=== PATIENT | female | born 1970 | race Caucasian/White ===

== ENCOUNTER 2020-09-22 15:59 | Emergency (ER) | payer BC ==
--- OUTSIDE RECORDS SUMMARY | 2020-09-22 16:04 | XMS REPORT | Continuity of Care Document ---
:1970 Author Organization [facility] t Address [address] [place] [address] Dr. Hoffman [address] [place] [id number] Care Team Providers Name Role Phone Unavailable Unavailable Unavailable Problems This patient has no known problems. Allergies, Adverse Reactions, Alerts This patient has no known allergies or adverse reactions. Medications This patient has no known medications. Procedures This patient has no known procedures. Results This patient has no known results.
[2020-09-22] MEDS ORDERED: MORPHINE 4 MG/ML SYR ONE ×2 (17:00→18:18)
[2020-09-22] MEDS ORDERED: ONDANSETRON 4 MG/2 ML VIAL ONE ×2 (17:00→18:19)
[2020-09-22] MEDS ORDERED: KETOROLAC 30 MG/ML INJ ONE (17:00)
[2020-09-22] MEDS ORDERED: CEFTRIAXONE/SWI 1gm 1 GM/10 ML SYR ONE (17:01)
[2020-09-22] MEDS ORDERED: NA CHLORIDE 0.9% 1,000 ML ONE ×2 (17:01→17:59)
[2020-09-22 17:06] LABS: Absolute Lymphocytes (CBC) 3.2 K/uL (0.7-4.9); Basophils % 0.8 % (0-1.3); Hematocrit 39.5 % (36.0-45.0); Lymphocytes % 29.9 % (15.3-44.8); MPV 8.6 fL (7.6-11.3); RBC Red Blood Cell Count 4.77 M/uL (3.86-4.86)
[2020-09-22 17:21] LABS: ALT/SGPT 19 U/L (12-78); AST/SGOT 13 U/L (15-37); Albumin 3.7 g/dL (3.4-5.0); Alkaline Phosphatase 78 U/L (45-117); BUN Blood Urea Nitrogen 19 mg/dL (7-18); Bicarbonate 23 mmol/L (21-32); Bilirubin Direct < 0.1 mg/dL (0-0.2); Bilirubin Total 0.1 mg/dL (0.2-1.0); Glucose Level 111 mg/dL (74-106); Lipase 111 U/L (73-393); Protein, Total 7.1 g/dL (6.4-8.2); Sodium Level 139 mmol/L (136-145)
--- NOTE | 2020-09-22 17:21 | RAD REPORT ---
EXAM DESCRIPTION: CTAbdomen Pelvis W Contrast - 09/22/2020 5:15 pm CLINICAL HISTORY: Abdominal pain. ABD PAIN COMPARISON: <Comparisons> TECHNIQUE: Biphasic CT imaging of the abdomen and pelvis was performed with 100 ml non-ionic IV cont rast. All CT scans are performed using dose optimization technique as appropriate and may include automated exposure control or mA/KV adjustment according to patient size. FINDINGS: The lung bases are clear. The liver, spleen, pancreas, adrenal glands and right kidney are within normal limits. Mild left hydr onephrosis and hydroureter is present with a 4 mm stone at the left UVJ. A tiny punctate calculus is also noted slightly more proximally in the left ureter. No bowel obstruction, free air, free fluid or abscess. The appendix is normal. No evidence of signi ficant lymphadenopathy. No suspicious bony findings. IMPRESSION: 4 mm stone left UVJ resulting mild left hydronephrosis and hydroureter.
--- NOTE | 2020-09-22 17:30 | EDPHYS ---
Physician Documentation [facility] Name: Beena Lobo Age: 50 yrs Sex: Female : 1970 Arrival Date: 09/22/2020 Time: 16:03 Bed 5 Private MD: BASIL Physician Juan Plaza HPI: 09/22 16:36 This 50 yrs old Female presents to ER via Ambulatory with complaints of mike Abdominal Pain, Vomiting. 16:36 The patient presents to the emergency department with nausea, vomiting, that is mike continuous. Onset: The symptoms/episode began/occurred just prior to arrival. Possible causes: unknown. The symptoms are aggravated by nothing. The symptoms are alleviated by nothing. Associated signs and symptoms: Pertinent positives: abdominal pain, dysuria. Severity of symptoms: At their worst the symptoms were moderate severe in the emergency department the symptoms are unchanged. The patient has not experienced similar symptoms in the past. 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 - Social history:: Smoking status: Patient denies any tobacco usage or history of. ROS: 16:37 Constitutional: Negative for fever, chills, and weight loss, Eyes: Negative for injury, mike pain, redness, and discharge, ENT: Negative for injury, pain, and discharge, Neck: Negative for injury, pain, and swelling, Cardiovascular: Negative for chest pain, palpitations, and edema, Respiratory: Negative for shortness of breath, cough, wheezing, and pleuritic chest pain, : Negative for injury, bleeding, discharge, and swelling, MS/Extremity: Negative for injury and deformity, Skin: Negative for injury, rash, and discoloration, Neuro: Negative for headache, weakness, numbness, tingling, and seizure, Psych: Negative for depression, anxiety, suicide ideation, homicidal ideation, and hallucinations, Allergy/Immunology: Negative for hives, rash, and allergies, Endocrine: Negative for neck swelling, polydipsia, polyuria, polyphagia, and marked weight changes, Hematologic/Lymphatic: Negative for swollen nodes, abnormal bleeding, and unusual bruising. 16:37 Abdomen/GI: Positive for abdominal pain, nausea and vomiting, of the posterior aspect of left lateral abdomen, anterior aspect of left lateral abdomen, left upper quadrant and left lower quadrant. Exam: 16:37 Constitutional: This is a well developed, well nourished patient who is awake, alert, mike and in no acute distress. Head/Face: Normocephalic, atraumatic. Eyes: Pupils equal round and reactive to light, extra-ocular motions intact. Lids and lashes normal. Conjunctiva and sclera are non-icteric and not injected. Cornea within normal limits. Periorbital areas with no swelling, redness, or edema. ENT: Nares patent. No nasal discharge, no septal abnormalities noted. Tympanic membranes are normal and external auditory canals are clear. Oropharynx with no redness, swelling, or masses, exudates, or evidence of obstruction, uvula midline. Mucous membranes moist. Neck: Trachea midline, no thyromegaly or masses palpated, and no cervical lymphadenopathy. Supple, full range of motion without nuchal rigidity, or vertebral point tenderness. No Meningismus. Chest/axilla: Normal chest wall appearance and motion. Nontender with no deformity. No lesions are appreciated. Cardiovascular: Regular rate and rhythm with a normal S1 and S2. No gallops, murmurs, or rubs. Normal PMI, no JVD. No pulse deficits. Respiratory: Lungs have equal breath sounds bilaterally, clear to auscultation and percussion. No rales, rhonchi or wheezes noted. No increased work of breathing, no retractions or nasal flaring. Pelvic Exam: Normal external genitalia. Speculum exam with closed cervical os, no discharge or bleeding noted. Bimanual exam with normal adnexa, no adnexal or cervical motion tenderness. Normal uterus. Female : Normal external genitalia. Skin: Warm, dry with normal turgor. Normal color with no rashes, no lesions, and no evidence of cellulitis. MS/ Extremity: Pulses equal, no cyanosis. Neurovascular intact. Full, normal range of motion. Neuro: Awake and alert, GCS 15, oriented to person, place, time, and situation. Cranial nerves II-XII grossly intact. Motor strength 5/5 in all extremities. Sensory grossly intact. Cerebellar exam normal. Normal gait. Psych: Awake, alert, with orientation to person, place and time. Behavior, mood, and affect are within normal limits. 16:37 Abdomen/GI: Inspection: abdomen appears normal, Bowel sounds: normal, Palpation: mild abdominal tenderness, moderate abdominal tenderness, in the posterior aspect of left lateral abdomen, anterior aspect of left lateral abdomen, left upper quadrant and left lower quadrant. Vital Signs: 16:07 BP 145 / 72; Pulse 85; Resp 18; Temp 97.6(TE); Pulse Ox 100% on R/A; Weight 56.7 kg; ss Height 5 ft. 3 in. (160.02 cm); Pain 9/10; 17:30 BP 130 / 72; Pulse 79; Resp 15; Pulse Ox 99% ; hb 19:36 BP 125 / 80; Pulse 80; Resp 18; Temp 98; Pulse Ox 100% ; Pain 0/10; mg2 16:07 Body Mass Index 22.14 (56.70 kg, 160.02 cm) ss MDM: 16:16 Patient medically screened. [facility] 16:38 Differential diagnosis: UTI, diverticulitis, pancreatitis, Nonspecific abd pain, mike pancreatitis, diverticulitis, viral gastroenteritis, gastroenteritis. Data reviewed: vital signs, nurses notes, lab test result(s), radiologic studies, CT scan. Data interpreted: engine monitor: rate is 85 beats/min, rhythm is regular. Test interpretation: by ED physician or midlevel provider:. Counseling: I had a detailed discussion with the patient and/or guardian regarding: the historical points, exam findings, and any diagnostic results supporting the discharge/admit diagnosis, lab results, radiology results. 09/22 16:35 Order name: Basic Metabolic Panel; Complete Time: 17:25 mike 09/22 16:35 Order name: CBC with Diff; Complete Time: 17:25 mike 09/22 16:35 Order name: Hepatic Function; Complete Time: 17:25 mike 09/22 16:35 Order name: Lipase; Complete Time: 17:25 mike 09/22 16:35 Order name: Urine Culture mike 09/22 18:14 Order name: Urine --Ancillary (enter results) eb 09/22 16:35 Order name: CT Abd/Pelvis - IV Contrast Only; Complete Time: 17:25 mike 09/22 18:14 Order name: Urine Dipstick-Ancillary EDMS 09/22 16:35 Order name: IV Saline Lock; Complete Time: 16:56 [facility] 09/22 16:35 Order name: Labs collected and sent; Complete Time: 16:56 [facility] 09/22 16:35 Order name: Urine Dipstick-Ancillary (obtain specimen); Complete Time: 18:09 [facility] 09/22 16:35 Order name: Urine Test (obtain specimen); Complete Time: 18:09 [facility] Administered Medications: 16:55 Drug: TORadol 30 mg Route: IVP; Site: right antecubital; hb 17:35 Follow up: Response: No adverse reaction hb 16:55 Drug: morphine 4 mg Route: IVP; Site: right antecubital; hb 17:35 Follow up: Response: No adverse reaction hb 16:55 Drug: Zofran (Ondansetron) 4 mg Route: IVP; Site: right antecubital; hb 17:40 Follow up: Response: No adverse reaction hb 16:56 Drug: NS 0.9% 1000 ml Route: IV; Rate: 1 bolus; Site: right antecubital; hb 18:08 Drug: morphine 4 mg Route: IVP; Site: right antecubital; hb 18:27 Follow up: Response: No adverse reaction hb 18:08 Drug: Zofran (Ondansetron) 4 mg Route: IVP; Site: right antecubital; hb 18:27 Follow up: Response: No adverse reaction hb 18:09 Drug: Rocephin - (cefTRIAXone) 1 grams Route: IVPB; Infused Over: 30 mins; Site: right hb antecubital; 18:10 Follow up: IV Status: Completed infusion; IV Intake: 10ml hb 18:28 Follow up: Response: No adverse reaction hb 18:09 Drug: Flomax 0.4 mg Route: PO; hb 19:36 Follow up: Response: No adverse reaction mg2 18:18 Drug: NS 0.9% 1000 ml Route: IV; Rate: 1 bolus; Site: right antecubital; hb 19:36 Follow up: Response: No adverse reaction; IV Status: Completed infusion; IV Intake: mg2 1000ml Disposition: 09/22/20 17:29 Discharged to Home. Impression: Hydronephrosis with renal and ureteral calculous obstruction - 4 mm uvj. - Condition is Stable. - Discharge Instructions: Kidney Stones, Kidney Stones, [id number], Hydronephrosis, Dietary Guidelines to Help Prevent Kidney Stones. - Prescriptions for Tylenol- Codeine #3 300-30 mg Oral Tablet - take 2 tablet by ORAL route every 4-6 hours As needed; 30 tablet. Zofran 4 mg Oral Tablet - take 1 tablet by ORAL route every 12 hours As needed; 20 tablet. Flomax 0.4 mg Oral Capsule, Sust. Release 24 hr - take 1 capsule by ORAL route once daily 1/2 hour following the same meal each day; 30 capsule. Cipro 500 mg Oral Tablet - take 1 tablet by ORAL route every 12 hours for 7 days; 14 tablet. - Medication Reconciliation Form, Thank You Letter, Antibiotic Education, Prescription Opioid Use form. - Follow up: Private Physician; When: 2 - 3 days; Reason: Recheck today's complaints, Re-evaluation by your physician. Follow up: Hiro Omer MD; When: 2 - 3 days; Reason: Recheck today's complaints, Re-evaluation by your physician. - Problem is new. - Symptoms have improved. Signatures: Dispatcher [employer] EDMS Juan Plaza MD MD cha Smirch, Shelby, RN RN Aline Chung RN RN Peter Burns RN RN mg2 Corrections: (The following items were deleted from the chart) 19:37 17:29 09/22/2020 17:29 Discharged to Home. Impression: Hydronephrosis with renal and mg2 ureteral calculous obstruction - 4 mm uvj. Condition is Stable. Forms are Medication Reconciliation Form, Thank You Letter, Antibiotic Education, Prescription Opioid Use. Follow up: Private Physician; When: 2 - 3 days; Reason: Recheck today's complaints, Re-evaluation by your physician. Follow up: Hiro Omer; When: 2 - 3 days; Reason: Recheck today's complaints, Re-evaluation by your physician. Problem is new. Symptoms have improved. mike
--- NOTE | 2020-09-22 17:30 | ER ---
Nurse's Notes [facility] Name: Beena Lobo Age: 50 yrs Sex: Female : 1970 Arrival Date: 09/22/2020 Time: 16:03 Bed 5 Private MD: Diagnosis: Hydronephrosis with renal and ureteral calculous obstruction-4 mm uvj Presentation: 09/22 16:07 Chief complaint: Patient states: vaginal pain that began Friday. Pt began taking ss Bactrim as prescribed by per PCP as there was blood in her urine. Pt now c/o sharp, stabbing pain to L flank area with nausea. Coronavirus screen: Client denies travel out of the [place] in the last 14 days. Ebola Screen: Patient denies exposure to infectious person. Patient denies travel to an Ebola-affected area in the 21 days before illness onset. Initial Sepsis Screen: Does the patient meet any 2 criteria? No. Patient's initial sepsis screen is negative. Does the patient have a suspected source of infection? No. Patient's initial sepsis screen is negative. Risk Assessment: Do you want to hurt yourself or someone else? Patient reports no desire to harm self or others. Onset of symptoms was September 22, 2020. 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 - Social history:: Smoking status: Patient denies any tobacco usage or history of. Screenin:23 Abuse screen: Denies threats or abuse. Denies injuries from another. Nutritional hb screening: No deficits noted. Tuberculosis screening: No symptoms or risk factors identified. Fall Risk None identified. Assessment: 16:56 General: Appears in no apparent distress. Behavior is calm, cooperative. Pain: Pain hb currently is 10 out of 10 on a pain scale. Neuro: Level of Consciousness is awake, alert, obeys commands, Oriented to person, place, time, situation. Cardiovascular: Patient's skin is warm and dry. Rhythm is regular. Respiratory: Respiratory effort is even, unlabored, Respiratory pattern is regular, symmetrical. GI: Reports lower abdominal pain, upper abdominal pain, nausea, vomiting. : Reports burning with urination. EENT: No signs and/or symptoms were reported regarding the EENT system. Derm: Skin is pink, warm \T\ dry. Musculoskeletal: No signs and/or symptoms reported regarding the musculoskeletal system. 18:18 Reassessment: Patient appears in no apparent distress at this time. Patient and/or hb family updated on plan of care and expected duration. Pain level reassessed. Patient is alert, oriented x 3, equal unlabored respirations, skin warm/dry/pink. Vital Signs: 16:07 BP 145 / 72; Pulse 85; Resp 18; Temp 97.6(TE); Pulse Ox 100% on R/A; Weight 56.7 kg; ss Height 5 ft. 3 in. (160.02 cm); Pain 9/10; 17:30 BP 130 / 72; Pulse 79; Resp 15; Pulse Ox 99% ; hb 19:36 BP 125 / 80; Pulse 80; Resp 18; Temp 98; Pulse Ox 100% ; Pain 0/10; mg2 16:07 Body Mass Index 22.14 (56.70 kg, 160.02 cm) ss ED Course: 16:03 Patient arrived in ED. mr 16:09 Triage completed. ss 16:10 Arm band placed on right wrist. ss 16:16 Juan Plaza MD is Attending Physician. mike 16:23 Aline Chung, GLORIA is Primary Nurse. hb 16:54 Inserted saline lock: 20 gauge in right antecubital area, using aseptic technique. hb Blood collected. 16:57 Patient has correct armband on for positive identification. Bed in low position. Call hb light in reach. 17:14 CT Abd/Pelvis - IV Contrast Only In Process Unspecified. EDMS 17:28 Hiro Omer MD is Referral Physician. mike 19:37 No provider procedures requiring assistance completed. IV discontinued, intact, mg2 bleeding controlled, No redness/swelling at site. Pressure dressing applied. Administered Medications: 16:55 Drug: TORadol 30 mg Route: IVP; Site: right antecubital; hb 17:35 Follow up: Response: No adverse reaction hb 16:55 Drug: morphine 4 mg Route: IVP; Site: right antecubital; hb 17:35 Follow up: Response: No adverse reaction hb 16:55 Drug: Zofran (Ondansetron) 4 mg Route: IVP; Site: right antecubital; hb 17:40 Follow up: Response: No adverse reaction hb 16:56 Drug: NS 0.9% 1000 ml Route: IV; Rate: 1 bolus; Site: right antecubital; hb 18:08 Drug: morphine 4 mg Route: IVP; Site: right antecubital; hb 18:27 Follow up: Response: No adverse reaction hb 18:08 Drug: Zofran (Ondansetron) 4 mg Route: IVP; Site: right antecubital; hb 18:27 Follow up: Response: No adverse reaction hb 18:09 Drug: Rocephin - (cefTRIAXone) 1 grams Route: IVPB; Infused Over: 30 mins; Site: right hb antecubital; 18:10 Follow up: IV Status: Completed infusion; IV Intake: 10ml hb 18:28 Follow up: Response: No adverse reaction hb 18:09 Drug: Flomax 0.4 mg Route: PO; hb 19:36 Follow up: Response: No adverse reaction mg2 18:18 Drug: NS 0.9% 1000 ml Route: IV; Rate: 1 bolus; Site: right antecubital; hb 19:36 Follow up: Response: No adverse reaction; IV Status: Completed infusion; IV Intake: mg2 1000ml Intake: 18:10 IV: 10ml; Total: 10ml. hb 19:36 IV: 1000ml; Total: 1010ml. mg2 Outcome: 17:29 Discharge ordered by MD. mckeon 19:37 Discharged to home ambulatory. mg2 19:37 Condition: stable 19:37 Discharge instructions given to patient, Instructed on discharge instructions, follow up and referral plans. medication usage, Demonstrated understanding of instructions, follow-up care, medications, Prescriptions given X 4. 19:37 Patient left the ED. mg2 Signatures: Dispatcher [employer] EDMS Juan Plaza MD MD cha Rivera, Bettye Montes, GLORIA CASTRO Aline Chung RN RN hb Gardose, Michele, RN RN mg2
[2020-09-22] MEDS ORDERED: TAMSULOSIN 0.4 MG SR CAP ONE (17:52)
[2020-09-22 18:15] LABS: Urine Blood Negative (Negative); Urine Glucose Negative (Negative); Urine Protein Negative (Negative); Urine Specific Gravity 1.015 (1.005-1.030)
[2020-09-22 18:37] LABS: Urine Specific Gravity/Preg 1.015 (1.005-1.030)
== END 2020-09-22 19:37 | disposition home or self-care (01) ==
LOC: ER 15:59
DX: N13.2 Hydronephrosis with renal and ureteral calculous obstruction (principal); E03.9 Hypothyroidism, unspecified
CPT/HCPCS: 96361; 87088; 85025; 87086; 80048; 36415; 81025; 82565; 80076; 81003; 83690; 74177; 96375; 96374; 99284; Q9967; J0696; J7030 ×2; J2405 ×2

== ENCOUNTER 2020-09-23 20:10 | Emergency (ER) | payer BC ==
--- OUTSIDE RECORDS SUMMARY | 2020-09-23 20:13 | XMS REPORT | Continuity of Care Document ---
:1970 Author Organization [facility] t Address [address] [place] [address] Dr. Hofmfan [address] [place] [id number] Care Team Providers Name Role Phone Unavailable Unavailable Unavailable Problems This patient has no known problems. Allergies, Adverse Reactions, Alerts This patient has no known allergies or adverse reactions. Medications This patient has no known medications. Procedures This patient has no known procedures. Results This patient has no known results.
[2020-09-23 20:23] LABS: Urine Blood Trace-intact (Negative); Urine Glucose Negative (Negative); Urine Protein Negative (Negative)
--- NOTE | 2020-09-23 20:44 | ER ---
Nurse's Notes [facility] Name: Beena Lobo Age: 50 yrs Sex: Female : 1970 Arrival Date: 09/23/2020 Time: 20:10 Bed 2 Private MD: Diagnosis: Ureterolithiasis;Hematuria Presentation: 09/23 20:23 Chief complaint: Patient states: Pt was here yesterday for kidney stones and was discharged. Pt C/O difficulty urinating and came back. Pt peed a little in ER. Coronavirus screen: Client denies travel out of the [place] in the last 14 days. Ebola Screen: Patient negative for fever greater than or equal to 101.5 degrees Fahrenheit, and additional compatible Ebola Virus Disease symptoms Patient denies exposure to infectious person. Risk Assessment: Do you want to hurt yourself or someone else? Patient reports no desire to harm self or others. Onset of symptoms was September 23, 2020. 20:23 Method Of Arrival: Ambulatory 20:23 Acuity: MICHEL 4 20:29 Initial Sepsis Screen: Does the patient meet any 2 criteria? No. Patient's initial sepsis screen is negative. Does the patient have a suspected source of infection? Yes: Acute abdominal pain. 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 - Social history:: Smoking status: Patient denies any tobacco usage or history of. Screenin:25 Abuse screen: Denies threats or abuse. Denies injuries from another. Nutritional screening: No deficits noted. Tuberculosis screening: No symptoms or risk factors identified. Fall Risk None identified. Assessment: 20:26 General: Appears in no apparent distress. Behavior is calm, cooperative, appropriate for age. Pain: Denies pain. Neuro: Level of Consciousness is awake, alert, obeys commands, Oriented to person, place, time, situation, Appropriate for age. Cardiovascular: Heart tones S1 S2. Respiratory: Airway is patent Respiratory effort is even, unlabored, Respiratory pattern is regular, symmetrical. Respiratory: Breath sounds are clear bilaterally. GI: Abdomen is flat, non-distended, Bowel sounds present X 4 quads. Abd is soft and non tender X 4 quads. : Reports inability to void. EENT: No signs and/or symptoms were reported regarding the EENT system. Derm: Skin is intact, is healthy with good turgor, Skin is pink, warm \T\ dry. normal. Musculoskeletal: Circulation, motion, and sensation intact. Vital Signs: 20:29 BP 114 / 58; Pulse 81; Resp 18; Temp 98.2; Pulse Ox 99% ; Weight 56.7 kg; Height 5 ft. wh 3 in. (160.02 cm); 20:29 Body Mass Index 22.14 (56.70 kg, 160.02 cm) ED Course: 20:10 Patient arrived in ED. ds1 20:12 Shirin Espinoza, RN is Primary Nurse. 20:17 Elemr Coy MD is Attending Physician. [facility] 20:24 Triage completed. 20:27 Arm band placed on right wrist. 20:28 Patient has correct armband on for positive identification. Bed in low position. Call light in reach. Side rails up X 1. Pulse ox on. NIBP on. 20:43 Hiro Omer MD is Referral Physician. 7 20:57 No provider procedures requiring assistance completed. Patient did not have IV access during this emergency room visit. Administered Medications: No medications were administered Outcome: 20:44 Discharge ordered by . 7 20:57 Discharged to home ambulatory, with family. 20:57 Condition: stable 20:57 Discharge instructions given to patient, Instructed on discharge instructions, follow up and referral plans. POC Demonstrated understanding of instructions, follow-up care, POC 20:58 Patient left the ED. Signatures: Mercedez Barajas ds1 Shirin Espinoza, GLORIA RN Elmer Coy MD MD [facility]
--- NOTE | 2020-09-23 20:44 | EDPHYS ---
Physician Documentation [facility] Name: Beena Lobo Age: 50 yrs Sex: Female : 1970 Arrival Date: 09/23/2020 Time: 20:10 Bed 2 Private MD: ED Physician Elmer Coy HPI: 09/23 20:35 This 50 yrs old Female presents to ER via Ambulatory with complaints of mh7 Urinary Problem, Possible Kidney Stone. 20:35 The patient presents with urinary symptoms, hesitancy. mh7 20:37 Onset: The symptoms/episode began/occurred today. Modifying factors: The symptoms are mh7 alleviated by nothing, the symptoms are aggravated by nothing. Associated signs and symptoms: Pertinent negatives: constipation, cramping, diarrhea, dyspareunia, dysuria, fever, hematuria, nausea, urinary frequency, vaginal bleeding, vaginal discharge, vomiting. Severity of symptoms: At their worst the symptoms were moderate, earlier today, in the emergency department the symptoms have resolved, and did so while in waiting room. The patient has been recently seen at the [facility] Emergency Department, yesterday. States that she was diagnosed with a kidney stone yesterday and had some difficulty with urination today. States that has resolved just prior to being evaluated in triage. Denies any other complaints at this time.. 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 - Social history:: Smoking status: Patient denies any tobacco usage or history of. ROS: 20:37 Constitutional: Negative for fever, chills, and weight loss, Eyes: Negative for injury, mh7 pain, redness, and discharge, ENT: Negative for injury, pain, and discharge, Neck: Negative for injury, pain, and swelling, Cardiovascular: Negative for chest pain, palpitations, and edema, Respiratory: Negative for shortness of breath, cough, wheezing, and pleuritic chest pain, Abdomen/GI: Negative for abdominal pain, nausea, vomiting, diarrhea, and constipation, Back: Negative for injury and pain, MS/Extremity: Negative for injury and deformity, Skin: Negative for injury, rash, and discoloration, Neuro: Negative for headache, weakness, numbness, tingling, and seizure, Psych: Negative for depression, anxiety, suicide ideation, homicidal ideation, and hallucinations, Allergy/Immunology: Negative for hives, rash, and allergies, Endocrine: Negative for neck swelling, polydipsia, polyuria, polyphagia, and marked weight changes, Hematologic/Lymphatic: Negative for swollen nodes, abnormal bleeding, and unusual bruising. Exam: 20:37 Constitutional: This is a well developed, well nourished patient who is awake, alert, mh7 and in no acute distress. Head/Face: Normocephalic, atraumatic. Eyes: Pupils equal round and reactive to light, extra-ocular motions intact. Lids and lashes normal. Conjunctiva and sclera are non-icteric and not injected. Cornea within normal limits. Periorbital areas with no swelling, redness, or edema. Neck: Trachea midline, no thyromegaly or masses palpated, and no cervical lymphadenopathy. Supple, full range of motion without nuchal rigidity, or vertebral point tenderness. No Meningismus. Chest/axilla: Normal chest wall appearance and motion. Nontender with no deformity. No lesions are appreciated. Cardiovascular: Regular rate and rhythm with a normal S1 and S2. No gallops, murmurs, or rubs. Normal PMI, no JVD. No pulse deficits. Respiratory: Lungs have equal breath sounds bilaterally, clear to auscultation and percussion. No rales, rhonchi or wheezes noted. No increased work of breathing, no retractions or nasal flaring. Abdomen/GI: Soft, non-tender, with normal bowel sounds. No distension or tympany. No guarding or rebound. No evidence of tenderness throughout. Back: No spinal tenderness. No costovertebral tenderness. Full range of motion. Skin: Warm, dry with normal turgor. Normal color with no rashes, no lesions, and no evidence of cellulitis. MS/ Extremity: Pulses equal, no cyanosis. Neurovascular intact. Full, normal range of motion. Neuro: Awake and alert, GCS 15, oriented to person, place, time, and situation. Cranial nerves II-XII grossly intact. Motor strength 5/5 in all extremities. Sensory grossly intact. Cerebellar exam normal. Normal gait. Psych: Awake, alert, with orientation to person, place and time. Behavior, mood, and affect are within normal limits. Vital Signs: 20:29 BP 114 / 58; Pulse 81; Resp 18; Temp 98.2; Pulse Ox 99% ; Weight 56.7 kg; Height 5 ft. wh 3 in. (160.02 cm); 20:29 Body Mass Index 22.14 (56.70 kg, 160.02 cm) MDM: 20:37 Differential diagnosis: kidney stone, urinary tract infection, urinary retention. Data [facility] reviewed: vital signs, old medical records, lab test result(s), urinalysis, hematuria. Data interpreted: Pulse oximetry: on room air is 99 %. Interpretation: normal. Counseling: I had a detailed discussion with the patient and/or guardian regarding: the historical points, exam findings, and any diagnostic results supporting the discharge/admit diagnosis, lab results, the need for outpatient follow up, to return to the emergency department if symptoms worsen or persist or if there are any questions or concerns that arise at home. Response to treatment: the patient's symptoms have resolved after treatment, the patient's blood pressure is in an acceptable range, mental status has returned to baseline, the patient no longer shows bradycardia, the patient is not short of breath, the patient is not tachycardic, the patient's pain is gone, the patient's temperature has normalized. Refusal of service: The patient/guardian displays adequate decision making capability and despite a detailed discussion of alternatives, benefits, risks, and consequences refuses: CT Scan, all lab tests. 20:44 Patient medically screened. [facility] 09/23 20:23 Order name: Urine Dipstick-Ancillary; Complete Time: 20:26 EDMS 09/23 20:25 Order name: Urine --Ancillary (enter results) 2 09/23 20:26 Order name: Urine --Ancillary EDMS Administered Medications: No medications were administered Disposition: 09/23/20 20:44 Discharged to Home. Impression: Ureterolithiasis, Hematuria. - Condition is Stable. - Discharge Instructions: Kidney Stones, [id number]. - Medication Reconciliation Form, Thank You Letter, Antibiotic Education, Prescription Opioid Use form. - Follow up: Private Physician; When: 1 - 2 days; Reason: Worsening of condition, Recheck today's complaints, Continuance of care, Re-evaluation by your physician. Follow up: Hiro Omer MD; When: 1 - 2 days; Reason: Worsening of condition, Recheck today's complaints. - Problem is new. - Symptoms have improved. Signatures: Dispatcher [employer] EDMS Shirin Espinoza RN RN Elmer Coy MD MD mh7 Corrections: (The following items were deleted from the chart) 20:58 20:44 09/23/2020 20:44 Discharged to Home. Impression: Ureterolithiasis; Hematuria. Condition is Stable. Forms are Medication Reconciliation Form, Thank You Letter, Antibiotic Education, Prescription Opioid Use. Follow up: Private Physician; When: 1 - 2 days; Reason: Worsening of condition, Recheck today's complaints, Continuance of care, Re-evaluation by your physician. Follow up: Hiro Omer; When: 1 - 2 days; Reason: Worsening of condition, Recheck today's complaints. Problem is new. Symptoms have improved. mh7
== END 2020-09-23 20:58 | disposition home or self-care (01) ==
LOC: ER 20:10
DX: N20.1 Calculus of ureter (principal); E03.9 Hypothyroidism, unspecified
CPT/HCPCS: 81003; 81025; 99283

== ENCOUNTER 2021-07-02 07:21 | Day surgery (SDC) | payer BC ==
[2021-07-02 07:40] LABS: Specific Gravity >= 1.030 (1.005-1.030)
[2021-07-02] MEDS ORDERED: Ringers Lactate 1,000 ML IV ONE (07:48)
[2021-07-02] MEDS ORDERED: propofoL 200 MG/20 ML VIAL IV ONE (08:01)
[2021-07-02] MEDS ORDERED: LIDOCAINE 1% MPF 5 ML VIAL ONE (08:02)
--- NOTE | 2021-07-02 08:45 | ENDO RPT ---
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 ESTIMATED BLOOD LOSS: None CONSENT: The patient understands the risks and benefits of the procedure and understands that these risks include, but are not limited to: sedation, allergic reaction, infection, perforation and/or bleeding. Alternative means of evaluation and treatment include, among others: physical exam, x-rays, and/or surgical intervention. The patient elects to proceed with this endoscopic procedure. DESCRIPTION OF PROCEDURE: During intra-op preparation period all mechanical medical equipment was checked for proper function. Hand hygiene and appropriate measures for infection prevention was taken. Procedure, possible complications, alternatives including, but not limited to possibility of bleeding, perforation, tear, infection, sepsis, need for surgery, need for blood transfusion, were explained to the patient. After the risks, benefits and alternatives of the procedure were thoroughly explained, Informed consent was verified, confirmed and timeout was successfully executed by the treatment team. The patient was placed in the left lateral position. A digital rectal exam was performed and revealed internal hemorrhoids. After appropriate level of anesthesia, the scope was passed. The EC-[id number] ([id number]) endoscope was introduced through the anus and advanced to the cecum, which was identified by both the appendix and ileocecal valve. The quality of the prep was fair. The instrument was then slowly withdrawn as the colon was fully examined. Scope withdrawal time was 8 minutes. COLON FINDINGS: A sessile polyp ranging between 3-5mm in size with a mucous cap was found in the sigmoid colon. A polypectomy was performed with cold forceps. The resection was complete, the polyp tissue was completely retrieved and sent to histology. Moderate sized internal hemorrhoids were found. Retroflexed views revealed no abnormalities. The scope was then completely withdrawn from the patient and the procedure terminated. ADVERSE EVENTS: There were no complications. IMPRESSIONS: 1. Sessile polyp ranging between 3-5mm in size was found in the sigmoid colon; polypectomy was performed with cold forceps 2. Internal hemorrhoids RECOMMENDATIONS: 1. follow-up: office 2 week(s) 2. avoid NSAIDS for 2 weeks 3. await biopsy results 4. fiber rich diet 5. Monitor for any evidence of rectal bleeding. 6. increase dietary water RECALL: for Colonoscopy, pending biopsy results. Jaydon Clark DR eSigned: Jaydon Clark DR 07/02/2021 8:44 AM cc: CPT CODES: ICD9 CODES: PATIENT NAME: Beena Lobo MR#: [id number]
[2021-07-02 08:56] VITALS: O2SAT 100
[2021-07-02 09:58] VITALS: BP 129/58; TEMP 97.9
== END 2021-07-02 09:32 | disposition home or self-care (01) ==
LOC: OR 07:21
PROVIDERS: ATTEND Surgery
PROC: 0DBN8ZX Excision of Sigmoid Colon, Via Natural or Artificial Opening Endoscopic, Diagnostic (ICD-10-PCS; principal; 2021-07-02 08:30)
DX: Z12.11 Encounter for screening for malignant neoplasm of colon (principal); K64.8 Other hemorrhoids; K63.5 Polyp of colon; Z20.822 Contact with and (suspected) exposure to COVID-19
CPT/HCPCS: 81025; 88305; 45380; U0002; J2704; J7120

== ENCOUNTER 2024-05-26 10:56 | Day surgery (SDC) | payer OTHER ==
[2024-05-26 09:42] LABS: Absolute Basophils 0.1 K/uL (0-0.5); Absolute Eosinophils 0.1 K/uL (0-0.5); Absolute Lymphocytes (CBC) 0.7 K/uL (0.7-4.9); Absolute Monocytes 0.7 K/uL (0.1-1.3); Absolute Neutrophil 9.2 K/uL (1.8-8.0); Basophils % 0.6 % (0-1.3); Hematocrit 42.7 % (36.0-45.0); Hemoglobin 14.2 g/dL (12.0-15.0); Lymphocytes % 6.9 % (15.3-44.8); MCHC 33.3 g/dL (32.0-36.0); MCV 84.3 fL (80-100); MPV 7.6 fL (7.6-11.3); Monocytes % 6.9 % (3.3-12.3); Neutrophils % 84.6 % (41.7-73.7); Nucleated Red Blood Cells % 0.1 % (0-0); Platelets 322 thou/uL (152-406); RBC Red Blood Cell Count 5.07 M/uL (3.86-4.86); Red Cell Distribution Width 13.8 % (12.1-15.2)
[2024-05-26 10:12] LABS: Anion Gap 6.3 mEq/L (5.0-15.0); Potassium 4.3 mEq/L (3.5-5.1)
[2024-05-26] MEDS: Ringers Lactate 1,000 ML IV ONE (11:20)
[2024-05-26] MEDS ORDERED: FENTANYL CITR 100 MCG/2 ML ONE ×2 (12:07→12:51)
[2024-05-26] MEDS ORDERED: LIDOCAINE 2% MPF 5 ML VIAL ONE (12:07)
[2024-05-26] MEDS ORDERED: propofoL 200 MG/20 ML VIAL IV ONE (12:07)
[2024-05-26] MEDS ORDERED: ONDANSETRON 4 MG/2 ML VIAL ONE (12:07)
[2024-05-26] MEDS ORDERED: MIDAZOLAM HCL 2 MG/2 ML INJ ONE (12:08)
[2024-05-26] MEDS: CEFAZOLIN SODIUM 1 GM/VIAL ONE (12:35)
[2024-05-26] MEDS ORDERED: dexAMETHasone 10 MG/ML VIAL ONE (12:43)
[2024-05-26] MEDS: LIDOCAINE HCL/EPINEPHRINE 20 ML MDV ONE (12:49)
--- NOTE | 2024-05-26 13:05 | P.OP ---
Preoperative diagnosis: LEFT pubic lipoma Postoperative diagnosis: LEFT pubic lipoma Primary procedure: Wide Excision of LEFT pubic lipoma Anesthesia: GETA + Local Estimated blood loss: <5cc Specimen: lipoma Findings: ~ 5cm x 2cm multilobulated lipoma Complications: None Transferred to: Recovery Room Condition: Good
[2024-05-26 14:36] VITALS: BP 118/58; TEMP 99.1; O2SAT 97
--- NOTE | 2024-05-26 17:40 | OP ---
Date of Procedure: 05/26/2024 Surgeon: Jaydon Clark MD, Preoperative Diagnosis: Left pubic lipoma. Postoperative Diagnosis: Left pubic lipoma. Procedure Performed: Wide local excision of left pubic lipoma. Anesthesia: General endotracheal plus local 1% lidocaine with epinephrine. Estimated Blood Loss: Less than 5 cc. Specimen: Lipomas. Findings: Approximately 5 cm x 2 cm multiloculated lipoma of the left pubic region. Complications: None. Disposition: The patient transferred to recovery room in good condition. Procedure In Detail: After informed consent was obtained, patient was brought into the operating russ m, prepped and draped in the usual sterile fashion after adequate anesthesia was achieved. I made a linear incision overlying the left pubic region on the mons pubis down to subcutaneous tissues with a 15 blade. Electrocautery was used to dissect down to a palpable multilobulated lipomatous mass in t he pubic region. This was removed in its entirety using a combination of blunt dissection, electroca utery, and sent off for pathologic examination with size as described above. The area was copiously irrigated. Deep tissue planes were reapproximated loosely with 3-0 Vicryl. Deep dermal plane was th en closed once again with 3-0 Vicryl and skin was closed with a 4-0 Monocryl in a running fashion. D ermabond was placed over top. The patient tolerated the procedure without incident or complication and transferred to PACU in good condition. All counts were correct at the end of the case. LEXUS/DIANA Voice ID: [id number] Report ID: [id number]
--- NOTE | 2024-05-28 15:52 | EKG ---
Test Date: 2024-05-26 Test Time: 10:19:00 Sucker Machine Operator: PREO MEASUREMENT RESULTS: Intervals: Rate: 87 NV: 142 QRSD: 76 QT: 350 QTc: 421 [place]: P: 69 NV: 142 QRS: 63 T: 60 INTERPRETIVE STATEMENTS: Normal sinus rhythm Normal ECG No previous ECG available for comparison Electronically Signed On 05-28-24 15:48:53 EMERGENCY MEDICAL TECH by Giacomo Brown
== END 2024-05-26 14:35 | disposition home or self-care (01) ==
LOC: OR 10:56
PROVIDERS: ATTEND Surgery
PROC: 0JBC0ZZ Excision of Pelvic Region Subcutaneous Tissue and Fascia, Open Approach (ICD-10-PCS; principal; 2024-05-26 12:45)
DX: D17.1 Benign lipomatous neoplasm of skin and subcutaneous tissue of trunk (principal)
CPT/HCPCS: 36415; 80048; 84703; 85025; 88304; 93005; J0690; J1100; J2003; J2250; J2405; J2704; J3010; J7120

== ENCOUNTER 2024-09-24 10:02 | Day surgery (SDC) | payer OTHER ==
--- OUTSIDE RECORDS SUMMARY | 2024-09-24 10:10 | XMS REPORT | Continuity of Care Document ---
Author Name Unknown Address [address] [place] [address] [place] [address] [address] [place] [address] Care Team Providers Care Slot Shift Manager Name Role Phone Unavailable Unavailable Unavailable Encounters Start Date/Time End Date/Time Encounter Type Admission Type Attending Clinicians Care Facility Care Department Encounter ID Source 2021-07-11 12:52:35 Outpatient [facility] [id number] [facility]
--- NOTE | 2024-09-24 13:10 | EDPHYS ---
Physician Documentation [facility] Name: Beena Lobo Age: 54 yrs Sex: Female : 1970 Arrival Date: 09/24/2024 Time: 10:02 Bed Treatment Private MD: ED Physician Devaughn Shay HPI: 09/24 10:32 Chief Complaint: Sensation of something stuck in the throat with associated pain. 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 The sensation was initially felt when swallowing and has since moved to a lower area, causing discomfort but not obstructing swallowing. The patient was able to eat a piece of pizza last night despite the pain. They report being concerned about a possible esophageal perforation due to the shifting sensation. Currently, the patient reports no pain due to receiving topical anesthesia. Review of Systems: - Positive for throat pain and sensation of something stuck in the throat. - Negative for swallowing obstruction, abdominal pain, and swelling. - ROS otherwise negative. . Historical: - Allergies: 10:14 No Known Allergies; hb - Home Meds: 10:14 [place] Thyroid 120 mg Oral tab daily [Active]; hb - PMHx: 10:14 Hypothyroidism; hb - PSHx: 10:14 None; hb - Immunization history:: Adult Immunizations up to date. - Infectious Disease History:: Denies. - Social history:: Smoking status: Patient denies any tobacco usage or history of. Exam: 10:32 Constitutional: This is a well developed, well nourished patient who is awake, alert, jr11 and in no acute distress. Head/Face: Normocephalic, atraumatic. Eyes: Extra-ocular motions intact. Lids and lashes normal. Conjunctiva and sclera are non-icteric and not injected. Cornea within normal limits. Periorbital areas with no swelling, redness, or edema. ENT: Nares patent. No nasal discharge, no septal abnormalities noted. Oropharynx with no redness, swelling, or masses, exudates, or evidence of obstruction, uvula midline. Mucous membranes moist. Chest/axilla: Normal chest wall appearance and motion. Nontender with no deformity. No lesions are appreciated. Cardiovascular: Regular rate and rhythm with a normal S1 and S2. No gallops, murmurs, or rubs. Normal PMI, no JVD. No pulse deficits. Respiratory: Lungs have equal breath sounds bilaterally, clear to auscultation and percussion. No rales, rhonchi or wheezes noted. No increased work of breathing, no retractions or nasal flaring. Abdomen/GI: Soft, non-tender, with normal bowel sounds. No distension or tympany. No guarding or rebound. No evidence of tenderness throughout. Back: No spinal tenderness. No costovertebral tenderness. Full range of motion. Skin: Warm, dry with normal turgor. Normal color with no rashes, no lesions, and no evidence of cellulitis. MS/ Extremity: Pulses equal, no cyanosis. Neurovascular intact. Full, normal range of motion. Vital Signs: 10:12 BP 151 / 92; Pulse 88; Resp 16; Temp 98.4(O); Pulse Ox 100% on R/A; Weight 56.7 kg; hb Height 5 ft. 3 in. ; Pain 1/10; 10:12 Body Mass Index 22.14 (56.70 kg, 160.02 cm) hb 10:12 Pain Scale: Adult hb MDM: 10:30 Medical Screening Exam initiated jr11 10:32 Differential diagnosis: Medical Decision Makin. Differential Diagnosis: 1. jr11 Esophageal obstruction 2. Esophageal inflammation 3. Esophageal perforation 4. Foreign body sensation 5. Less likely but life-threatening: Esophageal cancer Plan: - Discuss the case with Dr. Luz regarding the necessity of an endoscopy or further imaging. - Monitor the patient's symptoms and provide symptomatic relief as needed. - Educate the patient on signs of potential complications such as worsening pain, fever, or inability to swallow, and instruct to return to the ER if these occur. Administered Medications: No medications were administered Disposition Summary: 09/24/24 13:10 Hospitalization Ordered Notes: Hospitalization Status: Observation eb Provider: Honorio Rogers Location: DAY SURGERY OTHER eb Condition: Stable eb Symptoms: are unchanged eb Bed/Room Type: Standard eb Room Assignment: DSO- eb Diagnosis - Food in esophagus causing other injury, subsequent encounter eb Discharge Instructions: - Discharge Summary Sheet eb Forms: - Medication Reconciliation Form eb - SBAR form eb - Leadership Thank You Letter eb Signatures: Aline Chung RN RN Yohana Lynn Jose, MD MD jr11
--- NOTE | 2024-09-24 13:10 | ER ---
Nurse's Notes [facility] Name: Beena Lobo Age: 54 yrs Sex: Female : 1970 Arrival Date: 09/24/2024 Time: 10:02 Bed Treatment Private MD: Diagnosis: Food in esophagus causing other injury, subsequent encounter Presentation: 09/24 10:12 Chief complaint: Sent by Dr. Mccormick for possible foreign body in throat. Coronavirus hb screen: At this time, the client does not indicate any symptoms associated with coronavirus-19. Ebola Screen: No symptoms or risks identified at this time. Initial Sepsis Screen: Does the patient meet any 2 criteria? No. Patient's initial sepsis screen is negative. Does the patient have a suspected source of infection? No. Patient's initial sepsis screen is negative. Risk Assessment: Do you want to hurt yourself or someone else? Patient reports no desire to harm self or others. Onset of symptoms was September 21, 2024. 10:12 Method Of Arrival: Ambulatory hb 10:12 Acuity: MICHEL 3 hb Triage Assessment: 10:15 General: Appears in no apparent distress. Behavior is calm, cooperative. Pain: Pain hb currently is 1 out of 10 on a pain scale. at worst was 7 out of 10 on a pain scale. Neuro: Level of Consciousness is awake, alert, obeys commands, Oriented to person, place, time, situation. Cardiovascular: Patient's skin is warm and dry. Respiratory: Airway is patent Respiratory effort is even, unlabored, Respiratory pattern is regular, symmetrical. Historical: - Allergies: 10:14 No Known Allergies; hb - Home Meds: 10:14 [place] Thyroid 120 mg Oral tab daily [Active]; hb - PMHx: 10:14 Hypothyroidism; hb - PSHx: 10:14 None; hb - Immunization history:: Adult Immunizations up to date. - Infectious Disease History:: Denies. - Social history:: Smoking status: Patient denies any tobacco usage or history of. Screenin:27 [facility] ED Fall Risk Assessment (Adult) History of falling in the last 3 months, me1 including since admission No falls in past 3 months (0 pts) Confusion or Disorientation No (0 pts) Intoxicated or Sedated No (0 pts) Impaired Gait No (0 pts) Mobility Assist Device Used No (0 pt) Altered Elimination No (0 pt) Score/Fall Risk Level 0 - 2 = Low Risk Maintained a safe environment, Provided non-skid footwear, Hourly rounding (assess needs \T\ fall precautionary measures) done. Abuse screen: Denies threats or abuse. Nutritional screening: No deficits noted. Tuberculosis screening: No symptoms or risk factors identified. Assessment: 10:27 General: Appears uncomfortable, well groomed, well developed, well nourished, Behavior me1 is calm, cooperative, appropriate for age, Reports Sent by Dr. Mccormick for possible foreign body in throat. Patient states that something felt like it was higher up and has moved lower down but she is able to swallow liquids. Pain: Denies pain. Neuro: Level of Consciousness is awake, alert, obeys commands, Oriented to person, place, time, situation, Appropriate for age. Cardiovascular: Patient's skin is warm and dry. Respiratory: Airway is patent Respiratory effort is even, unlabored, Respiratory pattern is regular, symmetrical. GI: No signs and/or symptoms were reported involving the gastrointestinal system. : No signs and/or symptoms were reported regarding the genitourinary system. EENT: Reports she feels like something is in her throat but is able to swallow liquids. Derm: Skin is intact, is healthy with good turgor, Skin is pink, warm \T\ dry. Musculoskeletal: No signs and/or symptoms reported regarding the musculoskeletal system. Vital Signs: 10:12 BP 151 / 92; Pulse 88; Resp 16; Temp 98.4(O); Pulse Ox 100% on R/A; Weight 56.7 kg; hb Height 5 ft. 3 in. ; Pain 1/10; 10:12 Body Mass Index 22.14 (56.70 kg, 160.02 cm) hb 10:12 Pain Scale: Adult hb ED Course: 10:06 Patient arrived in ED. cj3 10:07 Juan Plaza MD is Attending Physician. mike 10:07 Attending Physician role handed off by Juan Plaza MD jr11 10:07 Devaughn Shay MD is Attending Physician. jr11 10:14 Triage completed. hb 10:14 Arm band placed on. hb 10:23 Primary Nurse role handed off by Janna Mcclellan, RN me1 10:23 Teena Mcdonald, RN is Primary Nurse. me1 10:27 Patient has correct armband on for positive identification. Bed in low position. Call me1 light in reach. Side rails up X2. Provided Education on: POC. Verbalized understanding.. Client placed on continuous cardiac and pulse oximetry monitoring. NIBP monitoring applied. Pulse ox on. NIBP on. 10:27 No provider procedures requiring assistance completed. me1 10:33 called and left a message for Dr. Rogers to call Dr. Shay for patient consultation. eb 10:[address] Rogers with Dr. Plaza for patient consultation. eb 13:08 Honorio Rogers MD is Hospitalizing Provider. eb Administered Medications: No medications were administered Medication: 10:27 VIS not applicable for this client. me1 Outcome: 13:10 Decision to Hospitalize by Provider. eb 13:11 Patient left the ED. eb Signatures: Juan Plaza MD MD cha Calderon, Audri, RN RN aa5 Aline Chung RN RN Yohana Lynn Devaughn Shay MD MD jr11 Teena Mcdonald RN RN nv1 Marleni Avitia cj3 Corrections: (The following items were deleted from the chart) 10:15 10:12 BP 151 / 92; Pulse 88bpm; Resp 16bpm; Pulse Ox 100% RA; Temp 98.4F Oral; Pain hb 06/25, Adult; hb 10:18 10:12 Chief complaint: Sent by Dr. Mccormick for possible foreign body in throat hb aa5 10:27 10:12 Chief complaint: Sent by Dr. Mccormick for possible foreign body in throat aa5 nv1 19:38 10:17 Janna Mcclellan, RN is Primary Nurse. aa5 aa5
[2024-09-24] MEDS: Ringers Lactate 1,000 ML IV ONE (13:40)
[2024-09-24] MEDS ORDERED: LIDOCAINE 1% MPF 5 ML VIAL ONE (14:15)
[2024-09-24] MEDS ORDERED: propofoL 200 MG/20 ML VIAL IV ONE (14:15)
[2024-09-24 16:30] VITALS: TEMP 97.4
[2024-09-24 16:33] VITALS: BP 125/59; O2SAT 98
--- NOTE | 2024-09-24 18:56 | CON ---
Date of Consultation: 09/24/2024 Reason For Consultation: Dysphagia, odynophagia. History Of Present Illness: The patient is a 54-year-old white female with history of hypothyroidism , taking thyroid medicines in the morning. The patient came to the hospital due to dysphagia, odynop hagia. She said last week she had a pain at the right upper neck area and it was 7/10 last week and then occurred again last night at 6 p.m. after eating dinner. She had a right pain in the right uppe r neck just above her voice box 7/10. Then, she awoke this morning at 7 a.m. with the pain in the lo wer inferior of the larynx in the middle anterior area in the middle of her neck just above the supra sternal notch with a 7/10 pain there. She took her thyroid medicine and pain medicine in the morning with 7/10 pain. She said the pills went down, she can still swallow her saliva, still swallow liqui ds, but does say the pain is right there and has some difficulty with solids. When she swallows even the pills, it is somewhat difficult, but she can still get them down. The patient takes also supple ments such as glucosamine, boron, and a mix of vitamin K and vitamin D pills. She went for a new Ear , Nose, and Throat doctor this morning, saw Dr. Sydnee Mccormick with negative evaluation. Past Medical History: Significant for hypothyroidism. She takes thyroid medicines in the morning. Recurrent sinus infection, requiring sinus surgery. Bone spurs in her feet that were surgically repa ired. Microdiscectomy in her back, lipoma in her pelvis, left hand surgery after she cut her hand __ through some glass in [place] when she was [place], and a hysterectomy. Medications: See chart. Review of Systems: Positive for dysphagia, odynophagia. No heartburn or reflux. No melena, hematochezia, hematemesis, coffee-grounds emesis, hemoptysis, hematuria, dysuria, polydipsia, muscle aches, joint aches, backach es, headaches, chest pain, short of breath, seizure, syncope. No depression or anxiety. Social History: She is , 2 children, a son and a daughter. No tobacco. No alcohol. 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 Family History: Father is alive and well. Mother with hypothyroidism. She had Hodgkin lymphom a. Had radiation therapy and has secondary carcinoma of the liver from the radiation ther apy. Her maternal grandmother had breast cancer at the age of 5050 years old. Physical Examination: Vital Signs: She is afebrile. Vital signs stable. Temperature 98.4 degrees Fahrenheit, pulse 88, r espirations 16, blood pressure 151/92, O2 saturation 100%. General: She is well-nourished, well-developed female, lying in bed, no acute distress. HEENT: Normocephalic, atraumatic. Anicteric. Pupils equal, round, and reactive to light. Extraocu lar movements intact. Oropharynx clear. Neck: Supple. No masses. Respirations: Clear to auscultation bilaterally. Cardiac: Regular rate and rhythm. No gallops, rubs. Abdomen: Positive bowel sounds. Soft, nondistended, nondistended. No hepatosplenomegaly. Extremities: No clubbing, cyanosis, or edema. 2+ pulses. Neurologic: Alert and oriented x3. Grossly nonfocal. 5/5 motor strength to light touch. Laboratory Data: No data. The patient did have a negative ear, nose, and throat, otolaryngology exa mination this morning at 9 a.m. with the laryngoscope as well that was negative. Impression: 1. Dysphagia, odynophagia at the right upper neck at the upper larynx level on the right side and the n later on it occurs at inferior aspect of the larynx just above the suprasternal notch. There is dy sphagia to solids. She can swallow saliva and liquids okay, but she says pills and solids gave her p ain, somewhat stuck a little bit. She does take glucosamine, boron, and vitamin K and D. She could have pill esophagitis or viral ulcer or other. 2. History of hypothyroidism, sinus surgeries with recurrent sinus infections, bone spur surgery, jhony rodiscectomy of the back, surgery right hand surgery after cut in [place], and hysterectomy. Recommendations: Proceed with an urgent EGD here from the emergency room. Continue IV fluids and ke ep patient n.p.o. WS/DIANA Voice ID: [id number] Report ID: [id number]
== END 2024-09-24 15:32 | disposition home or self-care (01) ==
LOC: ER 10:02 → DS 15:32
PROVIDERS: ATTEND Internal Medicine Gastroenterology
PROC: 0DJ08ZZ Inspection of Upper Intestinal Tract, Via Natural or Artificial Opening Endoscopic (ICD-10-PCS; principal; 2024-09-24 14:00)
DX: R13.10 Dysphagia, unspecified (principal); R09.A2 Foreign body sensation, throat; T18.128A Food in esophagus causing other injury, initial encounter; E03.9 Hypothyroidism, unspecified
CPT/HCPCS: 99282; 43235; J2704; J2003; J7120